=== PATIENT | female | born 1975 | race Caucasian/White ===

== ENCOUNTER 2022-04-29 08:14 | Day surgery (SDC) | payer BC ==
[2022-04-29] MEDS ORDERED: Propofol 200 MG/20 ML SDV IV ONE (08:15)
[2022-04-29] MEDS ORDERED: Lactated Ringers 1,000 ML IV SCH (08:15)
[2022-04-29] MEDS ORDERED: Sodium Chloride 0.9% 10 ML Syringe FLUSH PRN (08:15)
== END 2022-04-29 11:14 | disposition home or self-care (01) ==
LOC: FB.SDS 08:14
PROVIDERS: ATTEND Surgery
DX: Z12.11 Encounter for screening for malignant neoplasm of colon (principal); D12.0 Benign neoplasm of cecum; Z79.899 Other long term (current) drug therapy; Z90.49 Acquired absence of other specified parts of digestive tract; Z98.890 Other specified postprocedural states; Z87.891 Personal history of nicotine dependence; Z80.0 Family history of malignant neoplasm of digestive organs
CPT/HCPCS: 00812-QZ; 81025; 88305; J2704; J7120